=== PATIENT | male | born 1995 | race Caucasian/White ===

== ENCOUNTER 2018-02-22 19:00 | Emergency (ER) | payer OTHER ==
[~2018-02-22] VITALS: Ht 180.3 cm; Wt 86.5 kg
[2018-02-22] MEDS ORDERED: MOTRIN800 MG PO (19:35)
[2018-02-22 20:04] VITALS: BP 132/82
== END 2018-02-22 20:05 | disposition home or self-care (01) ==
LOC: EME 19:00
DX: L55.0 Sunburn of first degree (principal); Z88.0 Allergy status to penicillin
CPT/HCPCS: 99281; 99284